=== PATIENT | male | born 1985 | race Two or more races ===

== ENCOUNTER 2022-10-25 13:59 | Emergency (ER) | payer BC, OTHER, SELFPAY ==
[2022-10-25 14:57] VITALS: BP 115/70; PULSE 75; RESP 16; TEMP 36.8; O2SAT 99; BMI 18.7
--- NOTE | 2022-10-25 14:59 | ED.GENADULT ---
HPI - General Adult General Chief complaint: Fever Stated complaint: flu like symptoms Time Seen by Provider: 10/25/22 15:59 Related Data Previous Rx's Medication Instructions Recorded loperamide 2 mg capsule 2 mg PO Q4H PRN loose stool #14 10/25/22 caps prednisone 50 mg tablet 50 mg PO DAILY #4 tabs 10/25/22 Allergies Allergy/AdvReac Type Severity Reaction Status Date / Time aspirin Allergy Unknown Verified 10/25/22 15:00 [facility]LY [facility] Past Medical History Medical History (Updated 10/26/22 @ 00:02 by Dayna Santos) Asthma Social History Social History Advance Directives: No Advance Directives Information Provided: No Physical Exam ED Vital Signs: BMI result Body Mass Index 18.7 Course Course Course Narrative: 15:00 - RME - 37 yo male presenting with flu like symptoms for the last 6 days after known influenza exposure at home. has ongoing cough and not feeling well and is supposed to go back to work, needs a work note. VSS, dry cough noted. Medications Administered Discontinued Medications Generic Name Dose Route Start Last Admin Trade Name Freq PRN Reason Stop Dose Admin Loperamide HCl 4 mg 10/25/22 16:19 10/25/22 16:48 Loperamide Hcl 2 Mg Capsule PO 10/25/22 16:20 4 mg ONCE ONE Administration Prednisone 60 mg 10/25/22 16:19 10/25/22 16:48 Prednisone 20 Mg Tablet PO 10/25/22 16:20 60 mg ONCE ONE Administration Medical Decision Making Lab Data Labs: Lab Results 10/25/22 10/25/22 Range/Units 15:29 15:29 COVID-19 (KRYS) Negative (Negative) COVID-19 Clin Com See Note Influenza Type A (ADMIAN) Negative (Negative) Influenza Type B (DAMIAN) Negative (Negative) Influenza A & B Note See Note Discharge Plan Discharge Clinical Impression: Acute viral syndrome, Diarrhea Patient Disposition: Home, Self-Care Instructions: Acute Diarrhea (ED), Viral Syndrome (ED) Additional Instructions: Please follow-up with your primary care physician tomorrow. If you have any worsening or new symptoms, please return to the emergency room or call 911 Prescriptions: New prednisone 50 mg tablet 50 mg PO DAILY Qty: 4 0RF loperamide 2 mg capsule 2 mg PO Q4H PRN (Reason: loose stool) Qty: 14 0RF Rx Instructions: administer after each loose stool until symptoms controlled; do not exceed 8 mg per 24 hrs Stand Alone Forms: Work/School Release Interventions: ED Discharge Assessment Last Done: 10/25/22 16:56 Discharge Date/Time: 10/25/22 16:57
[2022-10-25 16:03] LABS: IDNOW Serial# 9DB6401D; Influenza A Negative (Negative); Influenza B2 Negative (Negative)
[2022-10-25 16:04] LABS: COVID-19 Test Negative (Negative); IDNOW Serial# 55D5AD1C
--- NOTE | 2022-10-25 16:20 | ED_ITS ---
HPI - General Adult General Chief complaint: Fever Stated complaint: flu like symptoms Time Seen by Provider: 10/25/22 15:59 Source: patient Mode of arrival: ambulatory Limitations: no limitations History of Present Illness HPI narrative: Patient comes to the emergency room complaining of cough and intermittent fevers for 6 days, had vomiting 3 days ago but stopped now, diarrhea for 1 day. Patient states that his and his daughter tested for flu positive last week. Related Data Previous Rx's Medication Instructions Recorded loperamide 2 mg capsule 2 mg PO Q4H PRN loose stool #14 10/25/22 caps prednisone 50 mg tablet 50 mg PO DAILY #4 tabs 10/25/22 Allergies Allergy/AdvReac Type Severity Reaction Status Date / Time aspirin Allergy Unknown Verified 10/25/22 15:00 Review of Systems Review of Systems: Constitutional : No Weight loss, complaining of fever and chills, generalized malaise. ENT/Mouth : No Hearing loss, No Ear Pain, No Nasal Congestion, No Sinus Pain, No Hoarseness, No sore throat, No Rhinorrhea, No Swallowing Difficulty Eyes: No Eye Pain, No Swelling, No Redness, No Foreign Body, No Discharge, No Vision Changes Cardiovascular : No Chest Pain, No SOB, No Dyspnea on Exertion, No Orthopnea, No Edema, No Palpitations Respiratory : Complaining of dry Cough, No Sputum, No Wheezing, No Smoke Exposure, No Dyspnea Gastrointestinal : Vomiting resolved, complaining of diarrhea No Constipation, No abdominal Pain, No Hematochezia, No Melena Genitourinary : no irregular bleeding, No Dysuria, No Urinary Frequency, No Hematuria, No Urinary Incontinence, No Urgency, No Flank Pain, No Urinary Flow Changes, No Hesitancy Musculoskeletal : No joint pain, No Myalgias, No Joint Swelling Skin : No Skin Lesions, No rash Neuro : No Weakness, No Numbness, No Paresthesias, No Loss of Consciousness, No Dizziness, No Headache Psych : No Anxiety/Panic, No Depression, No SI/HI/AH/VH, No Social Issues, Heme/Lymph: No Bruising, No Bleeding,No Lymphadenopathy Endocrine : No Polyuria, No Polydipsia, No Temperature Intolerance PMFSH Past Medical History Medical History (Updated 10/25/22 @ 16:30 by Charo Jennings MD) Asthma Social History Social History Advance Directives: No Advance Directives Information Provided: No Physical Exam ED Vital Signs: Vital Signs - 24 hr 10/25/22 14:57 Temperature 98.2 F Pulse Rate 75 Respiratory Rate 16 Blood Pressure 115/70 Pulse Oximetry 99 Oxygen Delivery Method Room Air BMI result Body Mass Index 18.7 Const Other: Appearance: Alert. Oriented X3. No acute distress. Eyes: Pupils equal, round and reactive to light. ENT: Pharynx normal. Neck: Normal inspection. Neck supple. No lymph nodes noted. No crepitus CVS: Normal heart rate and rhythm. Pulses normal. Normal S1 and S2 Respiratory: No respiratory distress. Breath sounds normal. Occasional wheezing, very good air movement, oxygen saturation 99% on room air, speaking in full sentences Abdomen: Soft and nontender. No rigidity. No distention. Skin: Skin warm and dry. Normal skin color. Normal skin turgor. Extremities: No lower extremity edema. No Lacerations. No Rash Neuro: Oriented X 3. No motor deficit. No sensory deficit. Moving all extremities. No slurred speech. CN 2 through 12 grossly intact Psych: calm, cooperative, normal affect Course Course Course Narrative: Patient likely did have influenza, his and daughter both had influenza. Patient tested negative. Patient has been symptomatic with thick days, even if he would have tested positive, he is outside of the window for treatment with Tamiflu. Medical Decision Making Differential Diagnosis Differential Diagnoses: The differential diagnosis associated with the prese ntation includes (Influenza, COVID, viral syndrome) Lab Data MDM Lab Attestation statement: I reviewed the patient's lab results. Labs: Lab Results 10/25/22 10/25/22 Range/Units 15:29 15:29 COVID-19 (KRYS) Negative (Negative) COVID-19 Clin Com See Note Influenza Type A (DAMIAN) Negative (Negative) Influenza Type B (DAMIAN) Negative (Negative) Influenza A & B Note See Note Discharge Plan Discharge Clinical Impression: Acute viral syndrome, Diarrhea Patient Disposition: Home, Self-Care Instructions: Acute Diarrhea (ED), Viral Syndrome (ED) Additional Instructions: Please follow-up with your primary care physician tomorrow. If you have any worsening or new symptoms, please return to the emergency room or call 911 Prescriptions: New prednisone 50 mg tablet 50 mg PO DAILY Qty: 4 0RF loperamide 2 mg capsule 2 mg PO Q4H PRN (Reason: loose stool) Qty: 14 0RF Rx Instructions: administer after each loose stool until symptoms controlled; do not exceed 8 mg per 24 hrs Stand Alone Forms: Work/School Release
[2022-10-25] MEDS: predniSONE 20 MG TABLET 60 MG PO (16:48)
[2022-10-25] MEDS: Loperamide HCl 2 MG CAPSULE 4 MG PO (16:48)
== END 2022-10-25 16:57 | disposition home or self-care (01) ==
PROVIDERS: Physician Assistant; Emergency Provider Emergency Medicine; PCP Internal Medicine
DX: R50.9 Fever, unspecified (principal); R19.7 Diarrhea, unspecified; Z20.822 Contact with and (suspected) exposure to COVID-19; Z79.899 Other long term (current) drug therapy
CPT/HCPCS: 87502; 87635; 99283

== ENCOUNTER 2023-07-04 20:25 | Emergency (ER) | payer BC, OTHER, SELFPAY ==
[2023-07-04 21:50] VITALS: BP 117/67; PULSE 76; RESP 16; TEMP 37.7; O2SAT 97; BMI 18.7
[2023-07-04 22:23] VITALS: BP 112/66; PULSE 70; RESP 16; TEMP 37.3; O2SAT 95
--- OUTSIDE RECORDS SUMMARY | 2023-07-04 22:31 | XMS_ITS | Continuity of Care Document ---
Author Name Unknown Organization [facility] ter Address [address] [place] [id number] Care Team Providers Care Travel Sales Consultant Name Role Phone Not on Staff, PCP Primary Care Physician Unavail able Encounter [facility] Date(s): 04/14/20 - 04/14/[address] [address]- [facility] Encounter Diagnosis Palsy, Elizalde's(Final) - 04/14/20 Facial droop(Final) - 04/14/20 Discharge Disposition: A-D/C Home Attending Physician: Rush Petersen MD Admitting Physician: Rush Petersen MD Referring Physician: Not on Staff, Referring MD Allergies, Adverse Reactions, Alerts Substance Reaction Severity Status aspirin Active Medications No Known Medications Vital Signs Most recent to oldest [Reference Range]: 1 2 Oxygen Saturation [94-100 %] 99 % (04/14/20 7:16 PM) 100 % (04/14/20 2:53 PM) Pulse Rate [55-90 bpm] 85 bpm (04/14/20 7:16 PM) 82 bpm (04/14/20 2:53 PM) Blood Pressure [90-138/55-84 mm Hg] 108/ 72mm Hg (04/14/20 7:16 PM) 109/70mm Hg (04/14/20 2:53 PM) Respiratory Rate [16-30 br/min] 18 br/mi n (04/14/20 7:16 PM) 16 br/min (04/14/20 2:53 PM) Temperature [96.8-100.4 DegF] 98.2 DegF (04/14/20 2:53 PM) Mode of Delivery (Oxygen) Room air (04/14/20 7:16 PM) Room air (04/14/20 2:53 PM) Blood pressure sites Arm, left (04/14/20 7:16 PM) Arm, left (04/14/20 2:53 PM) Temperature Route Oral (04/14/20 2:53 PM)
--- OUTSIDE RECORDS SUMMARY | 2023-07-04 22:32 | XMS_ITS | Patient Health Record ---
Author Name Unknown Organization [facility] Address [address] [place], [place] [id number] Care Team Providers Care Garden Implement Mechanic Name Role Phone Carlos Sutherland Unavailable [phone] ENCOUNTERS from 1984 to 2023-07-04 Encounter Location Date Provider Diagnosis [facility] [address] [id number] Dec, Carlos Sutherland SOCIAL HISTORY Sex Assigned At : Social History Observation Description Sex Assigned At Unknown REASON FOR REFERRAL No Information REASON FOR VISIT No Information MENTAL STATUS No Information PLAN OF TREATMENT No Information Insurance Providers Payer Name Payer Address Payer Phone Insured Name Patient Relationship to Insured Coverage Start Date Coverage End Date Subscriber Number Group Number Insurance - None Need to apply for insurance [id number] [facility] [id number] Jamey Spaulding Self - patient is the insured
[2023-07-04 23:41] VITALS: BP 119/63; PULSE 62; RESP 16; TEMP 36.9; O2SAT 98
--- NOTE | 2023-07-04 23:50 | ED.GENADULT ---
HPI - General Adult General Chief complaint: Fever Stated complaint: fever ,N+V Time Seen by Provider: 07/04/23 22:47 Source: patient Mode of arrival: ambulatory Limitations: no limitations History of Present Illness HPI narrative: Patient came with a friend COVID positive complaining of body aches slight nausea vomiting for last 2 days mostly dry cough no significant shortness of breath no rash Related Data Previous Rx's Medication Instructions Recorded loperamide 2 mg capsule 2 mg PO Q4H PRN loose stool #14 10/25/22 caps prednisone 50 mg tablet 50 mg PO DAILY #4 tabs 10/25/22 benzonatate 200 mg capsule 200 mg PO TID PRN cough #30 caps 07/04/23 Allergies Allergy/AdvReac Type Severity Reaction Status Date / Time aspirin Allergy Unknown Verified 07/04/23 21:50 Review of Systems Review of Systems: Yes all other systems are reviewed and are negative [facility] Past Medical History Medical History Asthma Social History Social History Advance Directives: No Advance Directives Information Provided: No Physical Exam ED Vital Signs: Vital Signs - 24 hr 07/04/23 21:50 07/04/23 22:23 07/04/23 23:41 Temperature 99.9 F 99.2 F 98.5 F Pulse Rate 76 70 62 Respiratory Rate 16 16 16 Blood Pressure 117/67 112/66 119/63 Pulse Oximetry 97 95 98 Oxygen Delivery Method Room Air Room Air Room Air BMI result Body Mass Index 18.7 Appearance: Alert. Oriented X3. No acute distress. ENT: Pharynx normal. Oral Mucosa moist Neck: Normal inspection. Neck supple. CVS: Normal heart rate and rhythm. Pulses normal. Respiratory: No respiratory distress. Equal air entry bilateral, no wheezing/rales/rhonchi Abdomen: Soft and nontender. Bowel sounds are present, Skin: Skin warm and dry. Normal skin color. Normal skin turgor. Extremities: No lower extremity edema. No calf tenderness Neuro: Oriented X 3. Medical Decision Making Medical Decision Making MDM Narrative: Patient with mild covid symptoms advised to have supportive treatment Discharge Plan Discharge Clinical Impression: COVID-19 Patient Disposition: Home, Self-Care Instructions: COVID-19 (Coronavirus Disease 2019) (ED) Additional Instructions: Social distancing as advised Cough drops or cough , Tylenol for body aches and fever Report to the ER if increased shortness of breath Prescriptions: New benzonatate 200 mg capsule 200 mg PO TID PRN (Reason: cough) Qty: 30 0RF No Action prednisone 50 mg tablet 50 mg PO DAILY Qty: 4 0RF loperamide 2 mg capsule 2 mg PO Q4H PRN (Reason: loose stool) Qty: 14 0RF Rx Instructions: administer after each loose stool until symptoms controlled; do not exceed 8 mg per 24 hrs Stand Alone Forms: Work/School Release
[2023-07-04] MEDS: guaiFEN/Codeine SF 200/20/10ML 10 ML LIQUID PO (23:57)
== END 2023-07-05 00:10 | disposition home or self-care (01) ==
PROVIDERS: Emergency Provider Internal Medicine; PCP Internal Medicine
DX: U07.1 COVID-19 (principal); R50.9 Fever, unspecified
CPT/HCPCS: 99283; 99284